=== PATIENT | female | born 2000 ===

== ENCOUNTER 2024-05-06 12:07 | Emergency (ER) | payer OTHER, SELFPAY ==
[2024-05-06 12:09] VITALS: BP 134/76
[2024-05-06 12:36] VITALS: BMI 35.9
[2024-05-06 12:43] LABS: % Basophils 0.6 % (0-2); % Eosinophils 0.6 % (0-6); % Immature Granulocytes 0.4 % (0-0.5); % Lymphocytes 30.6 % (20.5-51.1); % Monocytes 6.6 % (1.7-9.3); % Neutrophils 61.2 % (42.2-75.2); Absolute Lymphocytes 1.7 10^3/uL (1.2-3.4); Absolute Monocytes 0.4 10^3/uL (0.1-0.6); Absolute Neutrophils 3.3 10^3/uL (1.4-6.5); Hematocrit 37.5 % (37.0-47.0); Hemoglobin 12.9 g/dL (12.0-16.0); Mean Corp Hgb Conc. 34.4 g/dL (33.0-37.0); Mean Corpuscular Hgb 31.2 pg (27.0-31.0); Mean Corpuscular Volume 90.6 fL (81.0-99.0); Mean Platelet Volume 9.2 fL (7.4-10.4); Nucleated Red Blood Cells % 0 %; Platelet Count 308 10^3/uL (130-400); Red Blood Cell Count 4.14 10^6/uL (4.20-5.40); Red Cell Dist. Width 12.2 % (11.5-14.5); White Blood Cell Count 5.5 10^3/uL (4.8-10.8)
[2024-05-06 12:44] VITALS: BP 100/68
[2024-05-06 12:49] LABS: Urine Albumin Negative (Neg - Trace); Urine Bilirubin Negative (Negative); Urine Character Clear (Clear); Urine Color Yellow; Urine Glucose Negative (Negative); Urine Ketone Negative (Negative); Urine Leukocyte Negative (Negative); Urine Nitrite Negative (Negative); Urine Occult Blood Negative (Negative); Urine Urobilinogen Negative (Neg - 1+)
--- NOTE | 2024-05-06 12:52 | ED.GENMED ---
History of Present Illness
General
Chief Complaint: Abdominal Pain
Source: patient
Exam Limitations: none
Time Seen by Provider: 05/06/24 12:51
Nursing documentation reviewed up to this point in time: agreed with
History of Present Illness
History of Present Illness:
23-year-old female with history of PCOS, left ovarian torsion and 13 years old surgery with ovary spared. Patient states mid to left lower abdominal pain started mildly a week ago when she woke up and it has been gradually getting worse. She gets
no relief with Advil. She states the pain is getting worse and now starting to radiate to the right. She feels nauseous only when she eats. She had a normal bowel movement yesterday. She states the pain is worse with intercourse. She denies
fever or chills. She typically gets irregular periods as she is on Nexplanon control.
(Her mother was just discharged yesterday for colitis)
Saw PCP 2 days ago and is on Macrobid for UTI. Pain is not improving. Denies burning, frequency, urgency with urination.
Past History
Past History
ED Past Medical History: Other (PCOS)
ED Past Surgical History: Gynecological (ovarian torsion age 13)
Social History
Tobacco: Non-smoker
Review of Systems
Review of Systems
Allergies reviewed?: Yes
All Other Systems: ROS reviewed and negative except as documented in HPI and ROS
Constitutional: Denies fever or chills
ABD/GI: Reports abdominal pain; Denies nausea, vomiting, diarrhea, constipated, bloody stools, black stools or anorexia
: Denies dysuria, frequency, difficulty voiding, urgency or discharge
Musculoskeletal: Reports no symptoms
Skin: Reports no symptoms
Neurological: Reports no symptoms
Phy Exam
Physical Exam
Physical Exam:
GENERAL: No acute distress. A&Ox3.
CONSTITUTIONAL: Afebrile.
RESPIRATORY: Regular respirations, nonlabored, lungs clear.
CARDIOVASCULAR: Regular rate and rhythm, no murmurs, no rubs.
GI: Soft, tender LLQ, no guarding, no rebound, normal BS
MUSCULOSKELETAL: Moves with ease. Well perfused.
SKIN: Warm, dry, pink
PSYCH: Normal mood and affect. Well kept, interactive and appropriate
NEUROLOGIC: Awake, alert and oriented. No focal neurological deficits
Course
Orders/Labs/Results
Orders:
Orders
05/06/24 12:13
Test Result ONCE
05/06/24 12:21
Complete Blood Count/With Diff Urgent
Urinalysis Reflex To Culture Urgent
Date Specimen was Collected: 05/06/24
Time Specimen was Collected: 12:13
05/06/24 13:00
Comprehensive Metabolic Panel Urgent
HCG, Serum Qualitative Screen Urgent
Lipase Urgent
05/06/24 13:04
0.9% Sodium Chloride 1000 ml [Nss] 1,000 ml IV BOLUS
Ketorolac [Toradol] 15 mg IV NOW STA
05/06/24 13:06
CT Abd/Pel (IV only)-DH only Urgent
Comment:
Reason For Exam: LLQ abdominal pain
Abnormal Lab Results
05/06/24 05/06/24
12:21 13:00
RBC 4.14 L 10^6/uL
(4.20-5.40)
MCH 31.2 H pg
(27.0-31.0)
Glucose 102 H mg/dl
(70-99)
05/06/24 12:21
05/06/24 13:00
Vital Signs
Initial and Last Documented VS:
Initial Vital Signs
Temp Pulse Resp BP Pulse Ox
98.8 F 106 18 134/76 100
05/06/24 12:09 05/06/24 12:05/06/24 12:05/06/24 12:05/06/24 12:09
Last Documented Vital Signs
Temp Pulse Resp BP Pulse Ox
98.8 F 86 16 121/82 99
05/06/24 12:09 05/06/24 16:39 05/06/24 12:44 05/06/24 16:39 05/06/24 16:39
MDM/Problems Addressed
Differential Diagnosis Includes:
colitis, diverticulitis, ovarian cyst, kidney stone
MDM/Problems Addressed:
23-year-old female with history of PCOS, left ovarian torsion and 13 years old surgery with ovary spared. Patient states mid to left lower abdominal pain started mildly a week ago when she woke up and it has been gradually getting worse. She gets
no relief with Advil. She states the pain is getting worse and now starting to radiate to the right. She feels nauseous only when she eats. She had a normal bowel movement yesterday. She states the pain is worse with intercourse. She denies
fever or chills. She typically gets irregular periods as she is on Nexplanon control.
(Her mother was just discharged yesterday for colitis)
Saw PCP 2 days ago and is on Macrobid for UTI. Pain is not improving. Denies burning, frequency, urgency with urination.
1:00 PM:
CBC normal
CMP normal
hCG negative
UA negative
4:25 p.m.: CT abd/pelvis w IV only contrast: Radiology report read: IMPRESSION:
Markedly limited evaluation of intestinal tract without oral contrast and with paucity of intra-abdominal/pelvic fat, without intestinal obstruction, gross pericolonic inflammatory changes or free air.
At least portion of likely unremarkable appendix identified.
6.5 cm simple appearing cystic lesion within the true pelvis midline and slightly to the left most likely ovarian in origin such as an ovarian cyst. Some of several additional etiologies include mesenteric or paraovarian cyst.
Pt observed ambulating out with normal gait.
*Critical Care Note
Total Time (30-74mins, 75-104mins- exclusive of procedures): Not Applicable
ED Attending Note
-
Portions of this chart may have been created with voice recognition software.� Occasional wrong word or��sound alike� substitutions may have occurred due to the inherent limitations of voice recognition software.
Discharge Plan
Departure
Patient Disposition: Home (Routine Discharge)
Date of Disposition: 05/06/24
Time of Disposition: 16:26
Patient with high blood pressure during this ER visit?: No
Condition: Good
Discharge Problem:
Ovarian cyst, Pelvic pain
Instructions: Ovarian Cyst (DC)
Prescriptions:
No Action
No Current Medications
0
Referrals:
Kristina Marshall MD [Non-Admitting Privileges] - Next open appointment
Rosa Kiran PA-C [Family Provider] - Follow up in 2-3 days
Activity Restrictions/Additional Instructions:
As we discussed, your CAT scan shows that you have a left ovarian cyst which is most likely the cause of your pain.
Ibuprofen 600 mg, with food, every 6 hours as needed for pain. Heating pad may help.
See your [employer] doctor within the next week for evaluation. Take copies of all test results with you.
Interventions
Interventions:
*Risk Screen - Suicide Last Done: 05/06/24 12:11
*General Assessment Last Done: 05/06/24 12:11
*Neglect/Abuse Screening Last Done: 05/06/24 12:11
ED- Fall Risk Assessment Last Done: 05/06/24 12:36
*ED COVID-19 Vaccine History Last Done: 05/06/24 12:36
*Nursing Disposition Last Done: 05/06/24 16:39
TF-Vviqta-Anlfqfytjw Assessment Last Done: 05/06/24 12:36
Discharge Date and Time
Discharge Date/Time: 05/06/24 16:40
Print Language: ALGERIAN
[2024-05-06 13:00] VITALS: BP 119/76
[2024-05-06] MEDS: TORADOL 15 MG IV (13:11)
[2024-05-06] MEDS: NSS 1000 IV (13:11)
[2024-05-06 13:26] LABS: HCG, Serum Qualitative Screen Negative
[2024-05-06 13:38] LABS: ALT (SGPT) 24 U/L (0-35); AST (SGOT) 23 U/L (14-36); Albumin 4.4 g/dl (3.5-5.0); Alkaline Phosphatase 61 U/L (38-126); Blood Urea Nitrogen 10 mg/dl (7-17); Carbon Dioxide 25 mmol/L (22-30); Chloride 106 mmol/L (98-107); Estimated Creatinine Clearance 115 ml/min; Glucose 102 mg/dl (70-99); Lipase 48 U/L (23-300); Potassium 4.5 mmol/L (3.5-5.1); Sodium 136 mmol/L (135-145); Total Bilirubin 0.4 mg/dl (0.2-1.3); Total Protein 6.8 g/dl (6.3-8.2); eGFR > 60.00
[2024-05-06 16:39] VITALS: BP 121/82
== END 2024-05-06 16:40 | disposition home or self-care (01) ==
LOC: EMR 12:07
PROVIDERS: Student in an Organized Health Care Education/Training Program; EMERGENCY PHYSICIAN Emergency Medicine; FAMILY PHYSICIAN Physician Assistant
DX: R10.2 Pelvic and perineal pain (principal); R10.32 Left lower quadrant pain; N83.202 Unspecified ovarian cyst, left side; E28.2 Polycystic ovarian syndrome
CPT/HCPCS: 99285; 96361; 96374; 74177; 80053; 81003; 83690; 84703; 85025; Q9967